=== PATIENT | male | born 1960 | race Caucasian/White ===

== ENCOUNTER 2020-01-28 15:44 | Emergency (ER) | payer OTHER ==
[~2020-01-28] VITALS: Ht 190.5 cm; Wt 121.0 kg
[2020-01-28] MEDS ORDERED: MORPHINE SULFATE 4 MG/ML, 1ML ONE (17:15)
[2020-01-28] MEDS ORDERED: MORPHINE SULFATE 4 MG/ML, 1ML IVPush PRN (17:30)
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
[2020-01-28] MEDS ORDERED: SODIUM CHLORIDE FLUSH 10ML SYR IVF ONE (18:00)
[2020-01-28 19:18] VITALS: BP 128/64
--- NOTE | 2020-01-28 19:19 | NUR ---
TASK RN: Patient given discharge instructions and they have confirmed that they understand the instructions. Patient ambulatory with steady gait. NAD, VSS. denies additional needs or questions at this time. no pt belongings left in room at discharge.
== END 2020-01-28 19:20 | disposition home or self-care (01) ==
LOC: ED 16:40
DX: S80.812A Abrasion, left lower leg, initial encounter (principal); S80.811A Abrasion, right lower leg, initial encounter; M25.511 Pain in right shoulder; M25.561 Pain in right knee; M25.512 Pain in left shoulder; M54.2 Cervicalgia; R51 Headache; V49.49XA Driver injured in collision with other motor vehicles in traffic accident, initial encounter; Y93.89 Activity, other specified; Y92.410 Unspecified street and highway as the place of occurrence of the external cause; Y99.8 Other external cause status
CPT/HCPCS: 70450; 72125; 99285

== ENCOUNTER 2020-06-02 11:38 | Day surgery (SDC) | payer OTHER ==
[~2020-06-02] VITALS: Ht 182.9 cm; Wt 121.0 kg
[2020-06-02 11:53] VITALS: BP 144/87
[2020-06-02] MEDS ORDERED: CHLORHEXIDINE 15 ML UDC MM STA (11:58)
[2020-06-02] MEDS ORDERED: LACTATED RINGERS 1,000 ML IV SCH (12:00)
[2020-06-02] MEDS ORDERED: NO MEDS (12:12)
[2020-06-02] MEDS ORDERED: OXYMETAZOLINE NASAL SPRAY 0.05%,30ML ONE (14:04)
[2020-06-02] MEDS ORDERED: LIDOCAINE/PF 1%, 30ML ONE (14:04)
[2020-06-02] MEDS ORDERED: EPINEPHRINE 1 MG/ML, 1ML ONE (14:04)
[2020-06-02] MEDS ORDERED: MUPIROCIN OINT 2%, 22GM ONE (14:04)
[2020-06-02] MEDS ORDERED: MIDAZOLAM 1 MG/ML, 2ML ONE (14:09)
[2020-06-02] MEDS ORDERED: FENTANYL PF 250 MCG/5ML ONE (14:09)
[2020-06-02] MEDS ORDERED: DEXAMETHASONE 4 MG/ML, 5ML ONE (14:27)
[2020-06-02] MEDS ORDERED: PROPOFOL 10 MG/ML, 20ML ONE (14:27)
[2020-06-02] MEDS ORDERED: ROCURONIUM 10MG/ML,5ML ONE (14:27)
[2020-06-02] MEDS ORDERED: ONDANSETRON 2MG/ML, 2ML ONE (14:29)
[2020-06-02] MEDS ORDERED: LABETALOL 5MG/ML, 20ML IV PRN (14:30)
[2020-06-02] MEDS ORDERED: ACETAMINOPHEN 325 MG TABLET PO PRN (14:30)
[2020-06-02] MEDS ORDERED: MEPERIDINE/PF 25MG/0.5ML IVPush PRN (14:30)
[2020-06-02] MEDS ORDERED: HYDROmorphone 1 MG/ML, 1ML INJ IVPush PRN (14:30)
[2020-06-02] MEDS ORDERED: OXYcodone 5 MG/5 ML ORAL.SOL UDC PO PRN (14:30)
[2020-06-02] MEDS ORDERED: ONDANSETRON 2MG/ML, 2ML IVPush PRN (14:30)
[2020-06-02] MEDS ORDERED: PROMETHAZINE 25 MG/ML, 1ML IVPush PRN (14:30)
[2020-06-02] MEDS ORDERED: hydrALAzine 20 MG/ML, 1ML IV PRN (14:30)
[2020-06-02] MEDS ORDERED: CEFAZOLIN 1,000 MG ONE ×2 (14:40→14:41)
[2020-06-02] MEDS ORDERED: EPHEDRINE 50 MG/ML, 1ML ONE (14:45)
[2020-06-02] MEDS ORDERED: FENTANYL PF 100 MCG/2ML ONE (16:13)
[2020-06-02] MEDS ORDERED: OXYcodone 5 MG/5 ML ORAL.SOL UDC ONE (16:13)
[2020-06-02] MEDS ORDERED: ACETAMINOPHEN 650 MG/20.3 ML UDC ONE (16:13)
[2020-06-02] MEDS: FENTANYL PF 100 MCG/2ML IV PRN ×2 (16:16→16:29)
== END 2020-06-02 18:45 | disposition home or self-care (01) ==
LOC: OUT 11:38
PROVIDERS: ATTEND Otolaryngology
DX: J34.2 Deviated nasal septum (principal); J34.3 Hypertrophy of nasal turbinates; E66.9 Obesity, unspecified; Z20.822 Contact with and (suspected) exposure to COVID-19; Z79.899 Other long term (current) drug therapy
CPT/HCPCS: 30140; 30520; 93005; J0171; J0690; J1100; J2250; J2405; J2704; J3010; J7120; U0003

== ENCOUNTER 2020-07-04 15:43 | Day surgery (SDC) | payer OTHER ==
[~2020-07-04] VITALS: Ht 190.5 cm; Wt 119.0 kg
[~2020-07-04 15:43] MED LIST: CHLORHEXIDINE 15 ML UDC MM STA; LACTATED RINGERS 1,000 ML IV SCH; NO MEDS; PLEASE ENTER HEIGHT AND WEIGHT MC SCH
[2020-07-04 16:17] VITALS: BP 125/85
[2020-07-04] MEDS ORDERED: OXYMETAZOLINE NASAL SPRAY 0.05%,30ML ONE (17:08)
[2020-07-04] MEDS ORDERED: LIDOCAINE/PF 1%-EPI 1:200K, 30 ML ONE (17:08)
[2020-07-04] MEDS ORDERED: PHENYLEPHRINE 10 MG/ML ONE (17:22)
[2020-07-04] MEDS ORDERED: ROCURONIUM 10 MG/ML,10ML ONE (17:22)
[2020-07-04] MEDS ORDERED: SUGAMMADEX 200 MG/2 ML IVPush ONE ×2 (17:22→18:04)
[2020-07-04] MEDS ORDERED: SUCCINYLCHOLINE 20 MG/ML, 10ML ONE ×2 (17:22→18:04)
[2020-07-04] MEDS ORDERED: CEFAZOLIN 1,000 MG ONE ×3 (17:22→18:04)
[2020-07-04] MEDS ORDERED: ONDANSETRON 2MG/ML, 2ML ONE ×2 (17:22→18:04)
[2020-07-04] MEDS ORDERED: PROPOFOL 10 MG/ML, 20ML ONE ×2 (17:22→18:04)
[2020-07-04] MEDS ORDERED: FENTANYL PF 100 MCG/2ML ONE ×2 (17:26→18:22)
[2020-07-04] MEDS ORDERED: MIDAZOLAM 1 MG/ML, 2ML ONE (17:32)
[2020-07-04] MEDS ORDERED: ONDANSETRON 2MG/ML, 2ML IVPush PRN (18:00)
[2020-07-04] MEDS ORDERED: hydrALAzine 20 MG/ML, 1ML IV PRN (18:00)
[2020-07-04] MEDS ORDERED: DIPHENHYDRAMINE 50 MG/ML, 1ML IVPush PRN (18:00)
[2020-07-04] MEDS ORDERED: LABETALOL 5MG/ML, 20ML IV PRN (18:00)
[2020-07-04] MEDS ORDERED: ACETAMINOPHEN 325 MG TABLET PO PRN (18:00)
[2020-07-04] MEDS ORDERED: OXYcodone 5 MG/5 ML ORAL.SOL UDC PO PRN (18:00)
[2020-07-04] MEDS ORDERED: MEPERIDINE/PF 25MG/0.5ML IVPush PRN (18:00)
[2020-07-04] MEDS ORDERED: HYDROmorphone 1 MG/ML, 1ML INJ IVPush PRN (18:00)
[2020-07-04] MEDS ORDERED: PROMETHAZINE 25 MG/ML, 1ML IVPush PRN (18:00)
[2020-07-04] MEDS ORDERED: ROCURONIUM 10MG/ML,5ML ONE (18:04)
[2020-07-04] MEDS ORDERED: LIDOCAINE-MPF 2% ,5ML ONE (18:04)
[2020-07-04] MEDS: FENTANYL PF 100 MCG/2ML IV PRN ×2 (18:25→18:32)
== END 2020-07-04 20:20 | disposition home or self-care (01) ==
LOC: OR 15:43
PROVIDERS: ATTEND Otolaryngology
DX: R04.0 Epistaxis (principal); Z96.651 Presence of right artificial knee joint; Z98.890 Other specified postprocedural states
CPT/HCPCS: 31238; J0330; J0690; J2250; J2370; J2405; J2704; J3010